=== PATIENT | male | born 1960 | race Native Hawaiian/Other Pacific Islander ===

== ENCOUNTER 2020-06-23 10:58 | Outpatient (CLI) | payer OTHER | END 2020-06-23 22:12 | disposition home or self-care (01) | LOC: INF 10:58 | PROVIDERS: ATTEND Internal Medicine | DX: Z23 Encounter for immunization (principal) | CPT/HCPCS: 96372 ==

== ENCOUNTER 2020-07-15 10:51 | Outpatient (CLI) | payer OTHER | END 2020-07-15 22:19 | disposition home or self-care (01) | LOC: INF | PROVIDERS: ATTEND Internal Medicine | DX: Z23 Encounter for immunization (principal) | CPT/HCPCS: 96372 ==

== ENCOUNTER 2021-04-20 11:41 | Emergency (ER) | payer OTHER ==
[~2021-04-20] VITALS: Ht 182.9 cm; Wt 81.6 kg
[2021-04-20 11:41] VITALS: TEMP 98.7
[2021-04-20 12:47] LABS: PLATELET COUNT 263 K/uL (142-355)
[2021-04-20 13:09] LABS: POTASSIUM 4.1 mmol/L (3.6-5.2)
[2021-04-20 13:12] LABS: PARTIAL THROMBOPLASTIN TIME 21.3 SECONDS (24.5-33.6)
[2021-04-20 17:00] VITALS: BP 144/80
== END 2021-04-20 17:36 | disposition home or self-care (01) ==
LOC: ED 11:42
PROVIDERS: Emergency Medicine
DX: R55 Syncope and collapse (principal)
CPT/HCPCS: 36600; 80053; 80307; 80320; 81000; 82805; 84484; 85027; 85379; 85610; 85730; 93005; 96360; 99284; Q9963